=== PATIENT | female | born 1980 | race Caucasian/White ===

== ENCOUNTER 2017-06-01 15:52 | Emergency (ER) | payer SELFPAY ==
[~2017-06-01] VITALS: Ht 152.4 cm; Wt 90.7 kg
[2017-06-01] MEDS ORDERED: FIORINAL 50-321 EACH PO (17:39)
== END 2017-06-01 18:05 ==
LOC: EDMED 15:52
DX: R07.89 Other chest pain (principal); R51 Headache; G89.29 Other chronic pain; Z79.899 Other long term (current) drug therapy
CPT/HCPCS: J0780; J1200; J1885